=== PATIENT | female | born 1970 | race African-American/Black ===

== ENCOUNTER → 2016-09-30 | Outpatient (CLI) | payer MEDICARE, OTHER ==
[~2016-09-30] MED LIST: COZAAR 25MG25 MG/TAB PO; COZAAR 50MG50 MG/TAB PO; NORCO 325 MG-51 TAB PO; NORVASC 10MG10 MG PO; RENVELA800 MG PO; SENISPAR; SENSIPAR30 MG PO
== END ==
LOC: MC.RAD 15:44
DX: Z12.31 Encounter for screening mammogram for malignant neoplasm of breast (principal)

== ENCOUNTER → 2017-12-28 | Outpatient (CLI) | payer MEDICARE, OTHER | LOC: MC.RAD 07:13 | DX: Z12.31 Encounter for screening mammogram for malignant neoplasm of breast (principal) ==

== ENCOUNTER → 2019-01-13 | Outpatient (CLI) | payer MEDICARE, OTHER | LOC: MC.RAD 13:54 | DX: Z12.31 Encounter for screening mammogram for malignant neoplasm of breast (principal) ==

== ENCOUNTER 2023-11-06 09:55 | Emergency (ER) | payer MEDICARE, OTHER ==
[~2023-11-06] VITALS: Ht 147.3 cm; Wt 68.2 kg
[2023-11-06 10:08] VITALS: TEMP 97.8
[2023-11-06] MEDS ORDERED: NS 500 ML IV ONE (10:45)
[2023-11-06] MEDS ORDERED: Ondansetron 4 MG/2 ML VIAL IV PRN (10:45)
[2023-11-06] MEDS ORDERED: fentaNYL 50 MCG/ML 2 ML VIAL IV PRN (10:45)
[2023-11-06 11:03] LABS: BASO % 0.5 % (0.0-2.0); EOS # 0.2 K/mm3 (0.0-0.7); EOS % 3.1 % (0.0-4.0); GRAN # 5.6 K/mm3 (1.4-6.5); GRAN % 75.3 % (42.2-75.2); HEMATOCRIT 49.2 % (37.0-47.0); LYMPH # 1.1 K/mm3 (1.2-3.4); LYMPH % 14.9 % (20.0-51.0); MEAN CELL VOLUME 87 fl (80.0-100.0); MEAN CORPUSCULAR HEMOGLOBIN 28 pg (27-31); MEAN CORPUSCULAR HGB CONC 33 g/dl (33.0-37.0); MEAN PLATELET VOLUME 10.2 fl (7.4-10.4); MONO # 0.4 K/mm3 (0.1-0.6); MONO % 5.8 % (1.7-9.3); PLATELET COUNT 200 K/mm3 (130-400); RED BLOOD COUNT 5.64 M/mm3 (4.10-5.30); REDCELL DISTRIBUTION WIDTH-CV 14.5 % (11.5-14.5)
[2023-11-06 11:23] LABS: ALBUMIN 3.9 g/dL (3.5-5.0); BILIRUBIN,TOTAL 1.2 mg/dL (0.2-1.2); CALCIUM 9.6 mg/dL (8.4-10.2); CREATININE, serum 0.88 mg/dL (0.57-1.11); TOTAL PROTEIN 6.7 g/dl (6.2-8.1)
[2023-11-06] MEDS ORDERED: Iohexol 300 - 100 ML VIAL IV ONE (11:55)
[2023-11-06] MEDS ORDERED: NS 100 ML IV ONE (11:56)
[2023-11-06 12:41] LABS: COLLECTION METHOD CLEAN CATCH
[2023-11-06 12:50] LABS: URINE APPEARANCE CLEAR (CLEAR/HAZY); URINE BLOOD NEGATIVE (NEGATIVE); URINE COLOR YELLOW (YELLOW); URINE GLUCOSE 1+ (NEGATIVE); URINE KETONE NEGATIVE (NEGATIVE); URINE NITRATE NEGATIVE (NEGATIVE); URINE PROTEIN(semi-quant) NEGATIVE (NEGATIVE); URINE UROBILINOGEN 0.2 E.U/dL (0.2-1.0)
[2023-11-06 13:09] VITALS: BP 132/96; PULSE 73
== END 2023-11-06 13:20 | disposition home or self-care (01) ==
LOC: COL.ER 09:55
PROVIDERS: Personal Emergency Response Attendant
DX: R10.11 Right upper quadrant pain (principal)
CPT/HCPCS: J2405; J3010; J7040; Q9967